=== PATIENT | male | born 1955 | race Caucasian/White ===

== ENCOUNTER 2016-09-01 06:39 | Emergency (ER) | payer OTHER ==
--- NOTE | 2016-09-01 06:53 | CPEKG ---
Heart Rate: 95 RR Interval: 632 QRSD Interval: 94 QT Interval: 344 QTC Interval: 433 QRS [place]: -17 T Wave [place]: 14 EKG Severity - ABNORMAL ECG - EKG Impression: ATRIAL FIBRILLATION, V-RATE 76-112 EKG Impression: BORDERLINE LEFT AXIS DEVIATION Electronically Signed By: Caitlin Bernal 01-Sep-2016 14:57:53
--- NOTE | 2016-09-01 07:16 | EDPHY ---
H & P Time Seen by Provider: 09/01/16 07:05 HPI/ROS: CHIEF COMPLAINT: Palpitations HISTORY OF PRESENT ILLNESS: This patient is a 61 year old man, with a history of paroxysmal atrial fibrillation anticoagulated on Eliquis, presenting with acute palpitations, consistent with previous atrial fibrillation, sudden onset at 1:15am this morning (six hours ago). Palpitations are described as "two spider monkeys fighting in his chest", moderate in severity. He denies associated chest pain, shortness of breath, nausea, or lightheadedness. The patients takes Cardizem daily for atrial fibrillation. He called the psychological operations airfield defence guard for [facility], who instructed him to take an additional dose of Cardizem, with no alleviation. The patient has never cardioverted spontaneously. He has converted once in the past using Propafenone (which subsequently made him feel ill) and five times previously with electric cardioversion. He last ate or drank at 8:30pm last night (11 hours ago). He has been consistently anticoagulated on Eliquis, no missed doses. His airfield defence guard is Dr. Alicea and potato sorter is Dr. Santos. REVIEW OF SYSTEMS: Constitutional: No fever, no chills Eyes: No visual changes ENT: No sore throat Respiratory: No cough, no shortness of breath Cardiac: Palpitations. No chest pain Gastrointestinal: No nausea, no vomiting, no abdominal pain Genitourinary: No hematuria, no dysuria Musculoskeletal: No leg pain or swelling Skin: No rash Neurological: No headache, no numbness, no weakness Psychiatric: No depression Past Medical/Surgical History: Paroxysmal atrial fibrillation, history of left eye trauma Social History: , at bedside, non-smoker. Welder Setter Resistance Machine is Dr. Alicea and potato sorter is Dr. Santos. Smoking Status: Never smoked Physical Exam: General Appearance: Alert, no distress Eyes: Pupils equal and round, no conjunctival pallor or injection ENT, Mouth: Mucous membranes moist Neck: Normal inspection Respiratory: Lungs are clear to auscultation Cardiovascular: Irregularly irregular, regular rate Gastrointestinal: Abdomen is soft and non- tender Neurological: A&O, nonfocal, normal gait Skin: Warm and dry, no rash Extremities: Nontender, no pedal edema Psychiatric: Mood and affect normal Constitutional: Initial Vital Signs Temperature (C) 36.5 C 09/01/16 06:43 Heart Rate 80 09/01/16 06:43 Respiratory Rate 16 09/01/16 06:43 Blood Pressure 139/79 H 09/01/16 06:43 O2 Sat (%) 94 09/01/16 06:43 O2 Delivery Mode [.Immediate Non-Rebreather Mask Pre-Procedure] O2 Delivery Mode Nasal Cannula O2 (L/minute) [.Immediate Pre- 15 Procedure] O2 (L/minute) 2 Allergies/Adverse Reactions: No Known Allergies Allergy (Verified 12/04/15 16:15) Home Medications: Medication Instructions Recorded Cardizem Cd 03/08/16 Eliquis 03/08/16 Gemfibrozil 03/08/16 Niaspan 500 mg (*) 03/08/16 Medical Decision Making - Diagnostics EKG Interpretation: The 12 lead EKG was interpreted by myself. Atrial fibrillation, rate 95, borderline left axis deviation. See hard copy and/or "tracemaster" electronic copy for interpretation. Repeat 12 lead EKG was interpreted by myself. Normal sinus rhythm, rate 62, PVC , probable left atrial abnormality. See hard copy and/or "tracemaster" electronic copy for interpretation. Procedures: Procedure: Procedural sedation. Indication: Cardioversion A pre-sedation evaluation was completed on the patient at 0805. The patient has an ASA class 1 airway and modified Mallampati class 1 airway. Patient is an appropriate candidate for procedural sedation. The risks, benefits, alternatives of sedation were discussed with the patient. Consent was obtained. The patient was pre-oxygenated with 100% O2 on a [id number] and moved to the procedure room where airway rescue equipment is available. A time out was observed. The patient was sedated with 60mg IV Propofol. The patient was monitored with continuous pulse oximetry, guinea pig breeder, and end tidal CO2. There were no complications and no hypoxemia. The patient tolerated the procedure well and returned to baseline. I remained at the bedside for the sedation. The total time I spent in the procedural sedation was 15 minutes. Procedure: Electrical Cardioversion. Indication: Atrial fibrillation Risks, benefits, alternatives discussed with the patient and consent obtained. The patient was on a continuous cardiac catheterization technician, with airway equipment at the bedside. The patient was on continuous pulse oximetry and passive CO2 monitor. The cardioversion was performed with 200 joules synchronized biphasic current. The cardioversion was successful. The patient tolerated the procedure well with no complications. The procedure was performed by Dr. Magallanes. ED Course/Re-evaluation: 0720: Consulted with Dr. Magallanes, cardiology. He will come in to consult on the patient and plan for cardioversion. 0800: Dr. Magallanes present in the ED, consulted on the patient. Will perform cardioversion. Procedural sedation performed by myself, see separate note. Recommends that the patient follows up with Danielle or Gladys early this week. Procedure was successful. 0855: Patient remains in NSR. On re-evaluation, he is talking on the phone. No acute complaints. Comfortable with discharge to home. - Data Points Medications Given: Discontinued Medications Sodium Chloride (Ns) 1,000 mls @ 0 mls/hr IV EDNOW ONE PRN Reason: Wide Open Stop: 09/01/16 08:12 Last Admin: 09/01/16 08:05 Dose: 1,000 mls Propofol (Diprivan) 60 mg IVP EDNOW ONE Stop: 09/01/16 08:12 Last Admin: 09/01/16 08:10 Dose: 60 mg Departure - Departure Disposition: Home, Routine, Self-Care Clinical Impression: Paroxysmal atrial fibrillation Condition: Good Instructions: Atrial Fibrillation (ED) Additional Instructions: Follow up with Dr. Santos or Dr. Graham early this week. Return to the Emergency Department for recurrent symptoms, chest pain, shortness of breath, or other worsening of condition. Referrals: Matthew Millan MD [Primary Care Provider] - As per Instructions Guilherme Alicea MD [Medical Doctor] - As per Instructions Report Scribed for: Caitlin Bernal Report Scribed by: Philomena Canchola Date of Report: 09/01/16 Time of Report: 07:17 Physician Review and Approval Statement: 09/01/16 07:17 Portions of this note were transcribed by a medical imaging specialist. I personally performed a history, physical exam, medical decision making, and confirmed accuracy of information the transcribed note.
[2016-09-01] MEDS ORDERED: PROPOFOL/EMULSION 1,000 MG/100 ML BOTTLE IV ONE (08:04)
[2016-09-01] MEDS ORDERED: PROPOFOL 200 MG/20 ML VIAL ONE (08:05)
[2016-09-01] MEDS ORDERED: PROPOFOL 200 MG/20 ML VIAL IVP ONE (08:11)
[2016-09-01] MEDS ORDERED: NS 1,000 ML IV ONE (08:11)
[2016-09-01 08:22] VITALS: BP 124/83; O2SAT 97
--- NOTE | 2016-09-01 08:22 | CPEKG ---
Heart Rate: 62 RR Interval: 968 P-R Interval: 156 QRSD Interval: 100 QT Interval: 396 QTC Interval: 402 P [place]: 69 QRS [place]: -3 T Wave [place]: 20 EKG Severity - BORDERLINE ECG - EKG Impression: SINUS RHYTHM EKG Impression: VENTRICULAR PREMATURE COMPLEX EKG Impression: PROBABLE LEFT ATRIAL ABNORMALITY Electronically Signed By: Caitlin Bernal 01-Sep-2016 14:57:31
--- NOTE | 2016-09-01 09:02 | CPR ---
[f rep st] NONINVASIVE CARDIAC PROCEDURE REPORT DATE OF PROCEDURE: 09/01/2016 PROCEDURE: Cardioversion. I was asked to go to the emergency department with anesthesia provided by the ER for conversion of a gentleman in atrial fibrillation. I spoke with this patient approximately 1:15 or 1:30 this morning. He was clearly aware of the time at which he began the atrial arrhythmia. He has a history of atrial fibrillation. He is on anticoag ulation with Eliquis and has been for some time. He is followed in the outpatient setting by Dr. Johnson Santos. After appreciating arrhythmia, the patient was told to take an additional dose of his calcium channel maria d, diltiazem, and see how he felt in the morning. In the morning, he continued to be in atria l fibrillation and proceeded to the emergency department as instructed. In the emergency department, the ER physician provided propofol for sedation. After adequate sedatio n was achieved, the patient was shocked a single time with 200 joules synchronized from atrial fibril lation with a rate of approximately 90-95 to a normal sinus rhythm at 60-65 beats per minute. The [place] tolerated the procedure very well. No complications were noted. He is to follow up with Dr. Sree faulkner and Dr. Graham in the outpatient setting this week. I will pass his name along to the EP team, so jeramie vazquez can contact him for that followup. /[id number]/MODL
[2016-09-01 09:11] VITALS: PULSE 67; RESP 14; TEMP 98.1
== END 2016-09-01 09:10 | disposition home or self-care (01) ==
PROC: 5A2204Z Restoration of Cardiac Rhythm, Single (ICD-10-PCS; principal; 2016-09-01)
DX: I48.0 Paroxysmal atrial fibrillation (principal)
CPT/HCPCS: J2704

== ENCOUNTER 2016-12-17 10:09 | Day surgery (SDC) | payer OTHER ==
[2016-12-17] MEDS ORDERED: MIDAZOLAM 2 MG/2 ML VIAL IVP ONE (10:15)
[2016-12-17] MEDS ORDERED: fentaNYL 100 MCG/2 ML INJ IVP ONE (10:15)
[2016-12-17] MEDS ORDERED: NS 500 ML IV ONE (10:15)
[2016-12-17] MEDS ORDERED: PROPOFOL 200 MG/20 ML VIAL IVP ONE (10:15)
[2016-12-17 11:00] LABS: INR 1.07 (0.83-1.16); PROTIME(PATIENT) 13.8 SEC (12.0-15.0)
[2016-12-17 11:01] LABS: APTT 29.6 SEC (23.0-38.0)
[2016-12-17 11:14] LABS: ANION GAP 11 mEq/L (8-16); CALCIUM 9.8 mg/dL (8.5-10.4); CARBON DIOXIDE 26 mEq/l (22-31); CHLORIDE 107 mEq/L (97-110); CREATININE 0.9 mg/dL (0.7-1.3); GLOMERULAR FILTRATION RATE > 60; GLUCOSE 102 mg/dL (70-100); MAGNESIUM 2.2 mg/dL (1.6-2.3); POTASSIUM 4.2 mEq/L (3.5-5.2); SODIUM 144 mEq/L (134-144)
--- NOTE | 2016-12-17 11:26 | CPEKG ---
Heart Rate: 56 RR Interval: 1071 P-R Interval: 164 QRSD Interval: 100 QT Interval: 400 QTC Interval: 387 P [place]: 61 QRS [place]: -10 T Wave [place]: 14 EKG Severity - NORMAL ECG - EKG Impression: SINUS RHYTHM EKG Impression: COMPARED WITH 09/01/2016 AT 8:18 A.M., VENTRICULAR ECTOPY NOW ABSENT Electronically Signed By: Katy Isidro 17-Dec-2016 12:48:06
[2016-12-17] MEDS ORDERED: LIDOCAINE/PRILOCAINE 1 EACH CRTUBE TP PRN (14:16)
== END 2016-12-17 19:39 | disposition home or self-care (01) ==
LOC: FSGY 10:09 → FCATH 19:39
PROVIDERS: ATTEND Internal Medicine
PROC: 5A2204Z Restoration of Cardiac Rhythm, Single (ICD-10-PCS; principal; 2016-12-17)
DX: I48.91 Unspecified atrial fibrillation (principal); I10 Essential (primary) hypertension; E78.5 Hyperlipidemia, unspecified; K21.9 Gastro-esophageal reflux disease without esophagitis; Z79.01 Long term (current) use of anticoagulants

== ENCOUNTER 2017-01-08 09:37 | Day surgery (SDC) | payer OTHER ==
[2017-01-08] MEDS ORDERED: PROPOFOL 200 MG/20 ML VIAL IVP ONE (09:48)
[2017-01-08] MEDS ORDERED: fentaNYL 100 MCG/2 ML INJ IVP ONE (09:48)
[2017-01-08] MEDS ORDERED: NS 500 ML IV ONE (09:48)
[2017-01-08] MEDS ORDERED: MIDAZOLAM 2 MG/2 ML VIAL IVP ONE (09:48)
--- NOTE | 2017-01-08 10:41 | CPEKG ---
Heart Rate: 71 RR Interval: 845 QRSD Interval: 104 QT Interval: 392 QTC Interval: 426 QRS [place]: -17 T Wave [place]: 14 EKG Severity - ABNORMAL ECG - EKG Impression: ATRIAL FIBRILLATION EKG Impression: BORDERLINE LEFT AXIS DEVIATION Electronically Signed By: Colten Monae 08-Jan-2017 16:52:11
[2017-01-08 11:08] LABS: INR 1.04 (0.83-1.16); PROTIME(PATIENT) 13.5 SEC (12.0-15.0)
[2017-01-08 11:09] LABS: APTT 30.7 SEC (23.0-38.0)
[2017-01-08 11:23] LABS: ANION GAP 10 mEq/L (8-16); CALCIUM 9.6 mg/dL (8.5-10.4); CARBON DIOXIDE 23 mEq/l (22-31); CHLORIDE 109 mEq/L (97-110); CREATININE 0.9 mg/dL (0.7-1.3); GLOMERULAR FILTRATION RATE > 60; GLUCOSE 96 mg/dL (70-100); MAGNESIUM 2.2 mg/dL (1.6-2.3); POTASSIUM 4.2 mEq/L (3.5-5.2); SODIUM 142 mEq/L (134-144)
--- NOTE | 2017-01-08 12:48 | CPEKG ---
Heart Rate: 55 RR Interval: 1091 P-R Interval: 188 QRSD Interval: 108 QT Interval: 432 QTC Interval: 414 P [place]: 64 QRS [place]: -18 T Wave [place]: 21 EKG Severity - ABNORMAL ECG - EKG Impression: SINUS RHYTHM EKG Impression: INCOMPLETE RIGHT BUNDLE BRANCH BLOCK Electronically Signed By: Colten Monae 08-Jan-2017 16:52:01
--- NOTE | 2017-01-08 15:45 | CPIP ---
[f rep st] INVASIVE CARDIAC PROCEDURE PROCEDURE PERFORMED: Cardioversion. The patient gave informed consent. And there was a visitor in the room while the patient was having his preoperative clearance, and during the procedure, and the patient had agreed to let the visitor be in the room. We asked permission, and he said it was fine with him. The visitor did not in any way interfere with anything and was standing in the corner just observing a cardioversion. The patient, whom I have known for a long time, said it was perfectly fine with him. He was under no duress. It was before any anesthetics were given, and he said it would be perfectly fine with him. I totally believe that he understood the option of saying "no," and I gave it to him multiple times, and he did not want to say "no." He was happy to have the person present. So, we proceeded with anesthesia. We did our time-out, and then Anesthesia proceeded to anesthetize the patient, and he was synchronized cardioversion. With 360 watt seconds he converted from atrial fibrillation to normal sinus rhythm. He had no complications. I saw him after the procedure, he was waking up and doing well. I talked to his after the procedure, and she was well as well. All questions have been answered. There were no complications. /[id number]/MODL MTDD
== END 2017-01-08 13:56 | disposition home or self-care (01) ==
LOC: FCATH 09:37
PROVIDERS: ATTEND Internal Medicine
PROC: 5A2204Z Restoration of Cardiac Rhythm, Single (ICD-10-PCS; principal; 2017-01-08)
DX: I48.91 Unspecified atrial fibrillation (principal); R06.02 Shortness of breath; R07.9 Chest pain, unspecified; E78.5 Hyperlipidemia, unspecified
CPT/HCPCS: J2250; J2704

== ENCOUNTER 2018-05-08 20:02 | Emergency (ER) | payer OTHER ==
--- NOTE | 2018-05-08 20:37 | EDPHY ---
H & P Time Seen by Provider: 05/08/18 20:23 HPI/ROS: CHIEF COMPLAINT: Urinary retention, discomfort HISTORY OF PRESENT ILLNESS: Patient is a 62-year-old male with a remote history of prostatitis when he was 32, who presents emergency department with with urinary retention. He knew last PD at 7:30 a.m.. He has small amount of urine at 7:00 p.m.. Patient states that he has recently been constipated. He over 80 on Friday. Because this he fasted on Friday. He noted that he did not drink much water during the day. He has small bowel movement on Friday night. He felt well but constipated on . Patient has not had previous urinary retention. He has had a Sinha previously during back surgery. No fevers or chills. No back pain. Patient has suprapubic pressure but no other abdominal pain. No nausea or vomiting. REVIEW OF SYSTEMS: 10 systems were reveiwed and are negative with the exception of the elements mentioned in the history of present illness. Past Medical/Surgical History: Includes hypertension, hyperlipidemia, atrial fibrillation, prostatitis Past surgical history: Includes back surgery x2 Social history: Patient does not smoke Smoking Status: Never smoked Physical Exam: Vitals noted GENERAL: Well-appearing, in no acute distress, alert. HEENT: Eyes normal to inspection, normal pharynx, no signs of dehydration. NECK: Normal, supple. RESPIRATORY: Clear to auscultation bilaterally, no rales, rhonchi or wheezing. CVS: Regular rate and rhythm, no rubs, murmurs, or gallops. ABDOMEN: Soft, nontender, mild suprapubic distention, no organomegaly. BACK: Normal to inspection, no CVA tenderness. SKIN: Normal color, no rash, warm, dry. No pallor. EXTREMITIES: No pedal edema, no joint swelling. NEURO/PSYCH: Alert and oriented, normal mood and affect Constitutional: Initial Vital Signs Temperature (C) 36.6 C 05/08/18 20:05 Heart Rate 62 05/08/18 20:05 Respiratory Rate 16 05/08/18 20:05 Blood Pressure 154/86 H 05/08/18 20:05 O2 Sat (%) 96 05/08/18 20:05 O2 Delivery Mode Room Air Allergies/Adverse Reactions: No Known Allergies Allergy (Verified 05/08/18 20:12) Home Medications: Medication Instructions Recorded Gemfibrozil 03/08/16 Niaspan 500 mg (*) 03/08/16 Aspirin 81mg (*) 05/08/18 Bisoprolol Fumarate 05/08/18 Docusate Sodium [Colace 100 MG (*)] 100 mg PO BID #6 cap 05/08/18 Flecainide Acetate 05/08/18 Peg 3350/Na Sulf,Bicarb,Cl/KCl 1,000 ml PO ONCE #1 btl 05/08/18 [Golytely (RX)] Medical Decision Making ED Course/Re-evaluation: In the emergency department I discussed possible etiologies with the patient. I answered all her questions. About are scan was performed. It was 485. I discussed the result with the patient. A Sinha catheter was placed. Laboratory studies were ordered. Sinha catheter was placed. There is a fair amount of urine discharge. Please refer the nursing note. White count is minimally elevated at 10. Sodium was slightly low 133. UA negative Patient continues to have discomfort and pressure. Because the CT scan was ordered. He consented. CT of the abdomen pelvis: Please refer the dictated report by Dr. Ang. Patient is noted to be constipated. There is no mass or other abnormality noted the bladder. I discussed the results with the patient. I answered all his questions. He was given a prescription of GoLYTELY and Colace. He is given warnings prior to leaving. He was instructed on catheter care. His Sinha catheter will be kept in place. He will follow up with Urology. Differential Diagnosis: My differential includes but is not limited to urinary retention, urinary tract infection, pyelonephritis, renal insufficiency, renal failure, dehydration, constipation, small-bowel obstruction - Data Points Laboratory Results: Laboratory Results 05/08/18 21:29 05/08/18 21:29 05/08/18 05/08/18 05/08/18 21:29 21:29 21:16 WBC 9.54 10^3/uL H 10^3/uL (3.80-9.50) RBC 5.05 10^6/uL 10^6/uL (4.40-6.38) Hgb 16.0 g/dL g/dL (13.7-17.5) Hct 44.8 % % (40.0-51.0) MCV 88.7 fL fL (81.5-99.8) MCH 31.7 pg pg (27.9-34.1) MCHC 35.7 g/dL g/dL (32.4-36.7) RDW 12.1 % % (11.5-15.2) Plt Count 264 10^3/uL 10^3/uL (150-400) MPV 9.1 fL fL (8.7-11.7) Neut % (Auto) 76.0 % H % (39.3-74.2) Lymph % (Auto) 15.9 % % (15.0-45.0) [place] % (Auto) 6.7 % % (4.5-13.0) Eos % (Auto) 0.7 % % (0.6-7.6) Baso % (Auto) 0.4 % % (0.3-1.7) Nucleat RBC Rel Count 0.0 % % (0.0-0.2) Absolute Neuts (auto) 7.24 10^3/uL H 10^3/uL (1.70-6.50) Absolute Lymphs (auto) 1.52 10^3/uL 10^3/uL (1.00-3.00) Absolute Monos (auto) 0.64 10^3/uL 10^3/uL (0.30-0.80) Absolute Eos (auto) 0.07 10^3/uL 10^3/uL (0.03-0.40) Absolute Basos (auto) 0.04 10^3/uL 10^3/uL (0.02-0.10) Absolute Nucleated RBC 0.00 10^3/uL 10^3/uL (0-0.01) Immature Gran % 0.3 % % (0.0-1.1) Immature Gran # 0.03 10^3/uL 10^3/uL (0.00-0.10) Sodium 133 mEq/L L mEq/L (135-145) Potassium 3.9 mEq/L mEq/L (3.3-5.0) Chloride 99 mEq/L mEq/L (97-110) Carbon Dioxide 24 mEq/l mEq/l (22-31) Anion Gap 10 mEq/L mEq/L (6-14) BUN 19 mg/dL mg/dL (7-23) Creatinine 1.0 mg/dL mg/dL (0.7-1.3) Estimated GFR > 60 Glucose 79 mg/dL mg/dL (70-100) Calcium 9.3 mg/dL mg/dL (8.5-10.4) Total Bilirubin 1.0 mg/dL mg/dL (0.1-1.4) Conjugated Bilirubin 0.2 mg/dL mg/dL (0.0-0.5) Unconjugated Bilirubin 0.8 mg/dL mg/dL (0.0-1.1) AST 35 IU/L IU/L (17-59) ALT 35 IU/L IU/L (21-72) Alkaline Phosphatase 58 IU/L IU/L (38-126) Total Protein 7.1 g/dL g/dL (6.3-8.2) Albumin 4.4 g/dL g/dL (3.5-5.0) Lipase 50 IU/L IU/L (23-300) Urine Color YELLOW Urine Appearance CLEAR Urine pH 5.0 (5.0-7.5) Ur Specific [place] 1.006 (1.002-1.030) Urine Protein NEGATIVE (NEGATIVE) Urine Ketones 1+ H (NEGATIVE) Urine Blood NEGATIVE (NEGATIVE) Urine Nitrate NEGATIVE (NEGATIVE) Urine Bilirubin NEGATIVE (NEGATIVE) Urine Urobilinogen NEGATIVE EU EU (0.2-1.0) Ur Leukocyte Esterase NEGATIVE (NEGATIVE) Urine RBC 1-3 /hpf /hpf (0-3) Urine WBC 1-3 /hpf /hpf (0-3) Ur Epithelial Cells TRACE /lpf /lpf (NONE-1+) Urine Glucose NEGATIVE (NEGATIVE) Medications Given: Discontinued Medications Sodium Chloride (Ns) 500 mls @ 0 mls/hr IV ONCE ONE; Wide Open PRN Reason: Protocol Stop: 05/08/18 20:39 Last Admin: 05/08/18 21:47 Dose: 500 mls Phenazopyridine HCl (Pyridium) 200 mg PO EDNOW ONE Stop: 05/08/18 23:05 Last Admin: 05/08/18 23:05 Dose: 200 mg Departure - Departure Disposition: Home, Routine, Self-Care Clinical Impression: Urinary retention Abdominal pain Qualifiers: Abdominal location: unspecified location Qualified Code(s): R10.9 - Unspecified abdominal pain Constipation Qualifiers: Constipation type: unspecified constipation type Qualified Code(s): K59.00 - Constipation, unspecified Condition: Good Instructions: Urinary Retention in Men (ED), Constipation (ED) Additional Instructions: You will be discharged with your Sinha catheter in place. The this in place for the next 3-4 days. Call Friday morning to make an appointment to have the catheter removed. You were noted to be constipated on her CT scan. You been given a prescription for Colace and GoLYTELY. Return with increasing pain, fever, vomiting or any other concerns. Referrals: NONE *PRIMARY CARE P,. [Primary Care Provider] - As per Instructions Vipul Morris MD [Medical Doctor] - As per Instructions Prescriptions: Docusate Sodium [Colace 100 MG (*)] 100 mg PO BID #6 cap Peg 3350/Na Sulf,Bicarb,Cl/KCl [Golytely (RX)] 1,000 ml PO ONCE #1 btl
[2018-05-08] MEDS ORDERED: LIDOCAINE 2% JELLY 20 ML (UROJECT) ONE (20:51)
[2018-05-08 21:41] LABS: PLATELET COUNT 264 10^3/uL (150-400)
[2018-05-08] MEDS: NS 500 ML IV ONE (21:47)
[2018-05-08] MEDS ORDERED: PHENAZOPYRIDINE HCL 200 MG TAB ONE (23:02)
[2018-05-08] MEDS: PHENAZOPYRIDINE HCL 200 MG TAB PO ONE (23:05)
[2018-05-08] MEDS: DOCUSATE SODIUM 100 MG CAP PO ONE (23:31)
[2018-05-08 23:44] VITALS: BP 115/60
== END 2018-05-08 23:44 | disposition home or self-care (01) ==
PROC: 4A0D7LZ Measurement of Urinary Volume, Via Natural or Artificial Opening (ICD-10-PCS; principal; 2018-05-08)
PROC: 0T9B70Z Drainage of Bladder with Drainage Device, Via Natural or Artificial Opening (ICD-10-PCS; principal; 2018-05-08)
DX: R33.9 Retention of urine, unspecified (principal); K59.00 Constipation, unspecified; E86.9 Volume depletion, unspecified; R10.9 Unspecified abdominal pain

== ENCOUNTER → 2018-11-10 | Outpatient (CLI) | payer OTHER | LOC: BMCIMAGING 14:02 | PROVIDERS: ATTEND Podiatrist Foot & Ankle Surgery | DX: M20.11 Hallux valgus (acquired), right foot (principal); M20.12 Hallux valgus (acquired), left foot ==